=== PATIENT | female | born 1960 | race Asian ===

== ENCOUNTER 2025-01-31 07:47 | Emergency (ER) | payer MEDICARE, MEDICAID, SELFPAY ==
[2025-01-31 07:55] VITALS: BP 131/90; PULSE 97; RESP 19; TEMP 36.6; O2SAT 97
[2025-01-31 07:56] VITALS: BMI 26.4
--- NOTE | 2025-01-31 08:03 | EDNOTE_ITS ---
Upper Extremity Injury RME/HPI General Chief Complaint: Hand/Wrist Problems Stated Complaint: RIGHT THUMB INFECTION / PAIN X 3 DAYS Time Seen by Provider: 01/31/25 07:49 Arrival date/time: 01/31/25 07:47 64-year-old female presents to the emergency department today for complaints of right thumb infection patient reports she has had infection to her right thumb x 3 days. Limitations: no limitations Related Data Previous Rx's ?Medication ?Instructions ?Recorded levofloxacin 0.5 % eye drops See Rx Instructions tad ahmadi 06/07/21 (eye) .COMPLEX #5 mL hydrocodone 5 mg-acetaminophen 325 1 tab PO BID PRN pa in #10 tabs 08/03/21 mg tablet ibuprofen 600 mg tablet 600 mg PO Q8H PRN pain #30 t abs 08/03/21 gabapentin 100 mg capsule 100 mg PO TID #30 caps 12/27 clindamycin HCl 300 mg capsule 300 mg PO TID 7 days #2 1 caps 01/31/25 ibuprofen 600 mg tablet 600 mg PO Q6H #30 tabs 01/31 mupirocin 2 % topical ointment 1 applic topical TID 10 days #22 01/31/25 grams Allergies Allergy/AdvReac Type Severity Reaction Status Date / Time No Known Allergies Allergy Verified 01/31/25 07:51 Review of Systems Review of Systems Systems Reviewed: All systems reviewed, normal except as documented Constitutional Constitutional: Reports system reviewed and no additional complaints, except as documented, Denies fever(s) and Denies headache(s) Eyes Eyes: Reports system reviewed and no additional complaints, except as documented and Denies blurry vision ENT Ears, Nose, Mouth, and Throat: Reports system reviewed and no additional complaints, except as documented, Denies headache(s), Denies nasal congestion and Denies nasal discharge Cardiovascular Cardiovascular: Reports system reviewed and no additional complaints, except as documented, Denies chest pain and Denies dyspnea Respiratory Respiratory: Reports system reviewed and no additional complaints, except as documented, Denies chest congestion, Denies cough and Denies dyspnea Gastrointestinal Gastrointestinal: Reports system reviewed and no additional complaints, except as documented and Denies abdominal pain Integumentary/Breasts Skin/Breast: Reports system reviewed and no additional complaints, except as documented, Denies rash and Reports other (Infection right thumb) Neurologic Neurologic: Reports system reviewed and no additional complaints, except as documented, Reports as per HPI and Denies headache(s) Past Medical History Social History SMOKING STATUS: Light (< 1 pack/day) ED Exam General Limitations: Present no limitations General appearance: Present alert and in no apparent distress Head Head exam: Present atraumatic Eye Eye exam: Present normal appearance, PERRL and EOMI ENT ENT exam: Present normal exam, normal oropharynx and mucous membranes moist Neck Neck exam: Present normal inspection, full ROM and trachea midline Chest Chest inspection: Present normal inspection and symmetric chest wall rise Respiratory Respiratory exam: Present normal lung sounds bilaterally Cardiovascular Cardiovascular exam: Present regular rate, normal rhythm and normal heart sounds Abdominal Exam Abdominal exam: Present soft and normal bowel sounds Extremities Exam Extremities exam: Present normal inspection and full ROM Back Exam Back exam: Present normal inspection and full ROM Neurological Exam Neurological exam: Present alert, oriented X3 and CN II-XII intact Psychiatric Psychiatric exam: Present normal affect and normal mood Skin Skin exam: Present warm, dry and other (Patient appears to have ingrown fingerna il right thumb mild swelling and erythema) Course Quality Measures none Vital Signs Vital signs: Vital Signs Temperature 97.9 F 01/31/25 07:55 Pulse Rate 97 01/31/25 07:55 Respiratory Rate 19 01/31/25 07:55 Blood Pressure 131/90 H 01/31/25 07:55 Pulse Oximetry (%) 97 01/31/25 07:55 Oxygen Delivery Method Room Air 01/31/25 07:55 O2 saturation 97% room air within normal limits Extremity Injury MDM Narrative MDM Narrative:: 64-year-old female presents to the emergency department today for complaints of right thumb infection patient reports she has had infection to her right thumb x 3 days. On exam the medial aspect of right thumb patient has what appears to be mild infection perhaps a mild ingrown fingernail. Patient be treated with a course of antibiotics Explained to the patient if symptoms persist or worsen she is to return for reevaluation otherwise follow-up with PCP for further evaluation Patient data External records reviewed:: [facility] previous records Clinical information provided by:: patient Social determinants that could affect healthcare access:: none Patient has the following chronic illnesses:: See history How is presenting disease/condition affected by chronic disease/condition?: uneffected by Evaluation data The following diagnostics were reviewed and interpreted by me:: other (specify) (N/A) Lab and/or radiology exams considered but not ordered:: N/A Interpretation Summary: N/A Medications / Prescriptions Medications or Prescriptions considered but not ordered:: Given Medication administrations:: Given Consultations Consultation(s) initiated? (list below): No Diagnosis Upper Extremity Injury Differential Diagnosis: other (Cellulitis, abscess, abrasion) Most likely diagnosis given after review of the tests above:: Infection finger Admission Indicated Admission indicated?: not indicated Admission Request Was there a request for admission?: No Disposition Plan Disposition Plan: Discharge Discharge Attestation Discharge Attestation: The patient and all family members were given an opportunity to ask questions and understood the discharge instructions. Discharge instructions specifically effects, indications for sooner follow up or return to the emergency department, and the expected course of current diagnosis. Patient condition: Stable Discharge Plan Plan Patient Disposition: HOME (Self Care) Discharge Disposition comment: Stable Prescriptions/Referrals Prescriptions/Med Rec: New mupirocin 2 % ointment 1 applic topical TID 10 Days Qty: 22 0RF ibuprofen 600 mg tablet 600 mg PO Q6H Qty: 30 0RF clindamycin HCl 300 mg capsule 300 mg PO TID 7 Days Qty: 21 0RF No Action levofloxacin 0.5 % drops See Rx Instructions .ROUTE .COMPLEX Qty: 5 0RF Rx Instructions: put 1-2 drps in affected eye(s) every 2hr up to 8 times/day x2days; then 4 times/day x5days hydrocodone-acetaminophen 5-325 mg tablet 1 tab PO BID MDD 10 PRN (Reason: pain) Qty: 10 0RF ibuprofen 600 mg tablet 600 mg PO Q8H PRN (Reason: pain) Qty: 30 0RF gabapentin 100 mg capsule 100 mg PO TID Qty: 30 0RF Problem List Clinical Impression: Infected abrasion of right thumb Patient/Caregiver Discharge Instructions Education Materials: ED Abrasions Additional Instructions: Please follow up with your primary care doctor in the next 24-48hrs for any worsening symptoms return here immediately Print Language: Gambian Stand Alone Forms: [employer] Award Info., Work/School Release, Patient Portal Info Letter PA/ENVIRONMENTAL MANAGEMENT SPECIALIST Supervising Physician PA/ENVIRONMENTAL MANAGEMENT SPECIALIST Supervising Physician: Dr serrano
== END 2025-01-31 08:15 | disposition home or self-care (01) ==
LOC: SERX 08:26
PROVIDERS: Emergency Provider Nurse Practitioner Primary Care
DX: S60.311A Abrasion of right thumb, initial encounter (principal); L08.9 Local infection of the skin and subcutaneous tissue, unspecified; X58.XXXA Exposure to other specified factors, initial encounter
CPT/HCPCS: 99282